=== PATIENT | male | born 1970 | race Caucasian/White ===

== ENCOUNTER 2018-04-30 17:32 | Emergency (ER) | payer MEDICAID, SELFPAY ==
[2018-04-30 17:49] VITALS: BP 129/79; PULSE 73; TEMP 36.7; O2SAT 95
[2018-04-30 18:03] VITALS: RESP 16
--- NOTE | 2018-04-30 18:08 | W.ED.GENAD ---
Discharge Plan Disposition Patient Disposition: HOME Condition: Stable Discharge Details Chief Complaint: GenMedical Clinical Impression: Influenza Primary Care Provider: Jeane,Local ED Provider: Goran Lr Home Meds and New Rx's Prescriptions: New benzonatate 200 mg capsule 200 mg PO TID PRN (Reason: cough) Qty: 30 RF: 0 Discharge Instructions Instructions: Influenza (ED) Additional Instructions: During illness stay well-hydrated, get plenty of rest, and continue to use [id number] cough and cold medication such as Tylenol cold and flu severe or other symptomatic treatment. Return immediately to the emergency department for any significant worsening of symptoms, return of fever after illness for 7 days, or further concerns he may have. Otherwise if not improving after 1 week follow-up with your primary care provider for reassessment. Referrals: Primary Care Provider [Outside] (As needed for reassessment) Discharge Data Discharge Date/Time-TO BE ENTERED AT DEPARTURE: 04/30/18 18:25 Medical Decision Making Flulike symptoms for 3 days, improving today with no fever but continued body aches, physical exam consistent with influenza type illness without signs of secondary bacterial infection including pneumonia, strep pharyngitis, otitis media. No signs of meningitis. Flu testing was offered but given greater than 48 hours did inform him that he past treatment window for Tamiflu. After discussion patient denied testing. Patient prescribed Tessalon Perles and report return precautions were discussed. After discussion of diagnosis and plan of care patient is no further needs, questions, or concerns and states clear understanding to return to the emergency department for any worsening symptoms. HPI General Mode of arrival: ambulatory. Date/Time Provider Initiated Documentation: 04/30/18 18:08. Limitations to Documentation: no limitations. Information obtained by: patient and RN notes reviewed. History of Present Illness 48 year old M presents to the emergency department with the chief complaint of flu like symptoms, described as moderate, with intensity rated at 5. Quality is described as aching (Generalized body), Patient started experiencing this day(s) (3) and it has been constant. Patient did receive the following treatments prior to arrival, NSAID Related Data Home Medications Medication Instructions Recorded Confirmed benzonatate 200 mg PO TID PRN #30 cap 04/30/18 Previous Rx's Medication Instructions Recorded benzonatate 200 mg PO TID PRN #30 cap 04/30/18 Allergies Allergy/AdvReac Type Severity Reaction Status Date / Time No Known Allergies Allergy Unverified 04/30/18 18:10 General Stated Complaint: GenMedical IBETH: 4 Review of Systems Constitutional Reports body ache(s), Reports chills, Reports fever(s), Reports headache(s) and Reports malaise Eyes Denies eye discharge ENT Reports as per HPI, Denies ear discharge, Denies otalgia, Reports headache(s), Reports nasal congestion, Reports nasal discharge, Denies neck pain, Denies sinus pain, Reports sinus pressure, Reports sore throat and Denies throat swelling Cardiovascular Denies chest pain and Denies dyspnea Respiratory Reports cough and Denies dyspnea Gastrointestinal Denies abdominal pain, Denies diarrhea, Denies nausea and Denies vomiting Musculoskeletal Denies joint swelling and Denies neck pain Integumentary/Breasts Denies rash Neurologic Reports headache(s) Allergic/Immunologic Denies throat swelling [facility] Social History Smoking and Tabacco status: Never Exam Const General: cooperative, comfortable and no acute distress Orientation: alert and awake HENMT Head: normal to inspection, normocephalic and atraumatic Ears: hearing grossly normal bilaterally and TM's normal bilaterally General nose exam: external nose normal Face and sinus: normal facial exam, sinuses nontender and no erythema Mouth: oral mucosae normal, no drooling, no muffled voice and no trismus Throat: posterior oropharynx normal, tonsils normal and uvula midline Neck Neck: normal visual inspection, full ROM, no lymphadenopathy, no meningeal signs, trachea midline and supple Resp Effort & Inspection: normal respiratory effort, able to speak in complete sentences and cough Quality of cough: dry Auscultation: clear to auscultation bilaterally Cardio Rate: regular rate Rhythm: regular rhythm Heart Sounds: S1 normal, S2 normal, normal S1 and S2, no click, no gallops, no murmurs and no rubs Skin General skin exam: no rashes or lesions noted and dry skin (warm) Neuro General: alert, awake, oriented x3, gait normal and moves all extremities Cognition: normal cognition Speech: speech normal Course Vital Signs Temperature 36.7 C 04/30/18 17:49 Pulse 73 04/30/18 17:49 Blood Pressure 129/79 04/30/18 17:49 Pulse Oximetry 95 04/30/18 17:49 Temperature 36.7 C 04/30/18 17:49 Temperature Source Temporal Artery Scan 04/30/18 17:49 Pulse 73 04/30/18 17:49 Respiratory Rate 16 04/30/18 18:03 Respiratory Effort Non-Labored 04/30/18 18:03 Respiratory Depth Normal 04/30/18 18:03 Respiratory Pattern Normal 04/30/18 18:03 Blood Pressure 129/79 04/30/18 17:49 Blood Pressure Position Sitting 04/30/18 17:49 Pulse Oximetry 95 04/30/18 17:49 Oxygen Delivery Method Room Air 04/30/18 17:49 Oxygen Flow Rate 0 04/30/18 17:49 Pain Level 5 04/30/18 18:04 Lab/Test Results Lab/Test Results: 04/30/18 17:50 Nasopharynx Influenza Types A,B Antigen - Pending
--- NOTE | 2018-04-30 18:13 | ED.GENADUL_ITS ---
Discharge Plan Disposition Patient Disposition: HOME Condition: Stable Discharge Details Chief Complaint: GenMedical Clinical Impression: Influenza Primary Care Provider: Jeane,Local ED Provider: Goran Lr Home Meds and New Rx's Prescriptions: New benzonatate 200 mg capsule 200 mg PO TID PRN (Reason: cough) Qty: 30 RF: 0 Discharge Instructions Instructions: Influenza (ED) Additional Instructions: During illness stay well-hydrated, get plenty of rest, and continue to use [id number] cough and cold medication such as Tylenol cold and flu severe or other symptomatic treatment. Return immediately to the emergency department for any significant worsening of symptoms, return of fever after illness for 7 days, or further concerns he may have. Otherwise if not improving after 1 week follow-up with your primary care provider for reassessment. Referrals: Primary Care Provider [Outside] (As needed for reassessment) Discharge Data Discharge Date/Time-TO BE ENTERED AT DEPARTURE: 04/30/18 18:25 Medical Decision Making Flulike symptoms for 3 days, improving today with no fever but continued body aches, physical exam consistent with influenza type illness without signs of secondary bacterial infection including pneumonia, strep pharyngitis, otitis media. No signs of meningitis. Flu testing was offered but given greater than 48 hours did inform him that he past treatment window for Tamiflu. After discussion patient denied testing. Patient prescribed Tessalon Perles and r eport return precautions were discussed. After discussion of diagnosis and plan of care patient is no further needs, questions, or concerns and states clear understanding to return to the emergency department for any worsening symptoms. HPI General Mode of arrival: ambulatory . Date/Time Provider Initiated Documentation: 04/30/18 18:08 . Limitations to Documentation: no limitations . Information obtained by: patient and RN notes reviewed . History of Present Illness 48 year old M presents to the emergency department with the chief complaint of flu like symptoms, described as moderate, with intensity rated at 5. Quality is described as aching (Generalized body), Patient started experiencing this day(s) (3) and it has been constant. Patient did receive the following treatments prior to arrival, NSAID Related Data Home Medications Medication Instructions Recorded Confirmed benzonatate 200 mg PO TID PRN #30 cap 04/30/18 Previous Rx's Medication Instructions Recorded benzonatate 200 mg PO TID PRN #30 cap 04/30/18 Allergies Allergy/AdvReac Type Severity Reaction Status Date / Time No Known Allergies Allergy Unverified 04/30/18 18:10 General Stated Complaint: GenMedical IBETH: 4 Review of Systems Constitutional Reports body ache(s), Reports chills, Reports fever(s), Reports headache(s) and Reports malaise Eyes Denies eye discharge ENT Reports as per HPI, Denies ear discharge, Denies otalgia, Reports headache(s), Reports nasal congestion, Reports nasal discharge, Denies neck pain, Denies sinus pain, Reports sinus pressure, Reports sore throat and Denies throat swelling Cardiovascular Denies chest pain and Denies dyspnea Respiratory Reports cough and Denies dyspnea Gastrointestinal Denies abdominal pain, Denies diarrhea, Denies nausea and Denies vomiting Musculoskeletal Denies joint swelling and Denies neck pain Integumentary/Breasts Denies rash Neurologic Reports headache(s) Allergic/Immunologic Denies throat swelling [facility] Social History Smoking and Tabacco status: Never Exam Const General: cooperative, comfortable and no acute distress Orientation: alert and awake HENMT Head: normal to inspection, normocephalic and atraumatic Ears: hearing grossly normal bilaterally and TM's normal bilaterally General nose exam: external nose normal Face and sinus: normal facial exam, sinuses nontender and no erythema Mouth: oral mucosae normal, no drooling, no muffled voice and no trismus Throat: posterior oropharynx normal, tonsils normal and uvula midline Neck Neck: normal visual inspection, full ROM, no lymphadenopathy, no meningeal signs, trachea midline and supple Resp Effort & Inspection: normal respiratory effort, able to speak in complete sentences and cough Quality of cough: dry Auscultation: clear to auscultation bilaterally Cardio Rate: regular rate Rhythm: regular rhythm Heart Sounds: S1 normal, S2 normal, normal S1 and S2, no click, no gallops, no m urmurs and no rubs Skin General skin exam: no rashes or lesions noted and dry skin (warm) Neuro General: alert, awake, oriented x3, gait normal and moves all extremities Cognition: normal cognition Speech: speech normal Course Vital Signs Temperature 36.7 C 04/30/18 17:49 Pulse 73 04/30/18 17:49 Blood Pressure 129/79 04/30/18 17:49 Pulse Oximetry 95 04/30/18 17:49 Temperature 36.7 C 04/30/18 17:49 Temperature Source Temporal Artery Scan 04/30/18 17:49 Pulse 73 04/30/18 17:49 Respiratory Rate 16 04/30/18 18:03 Respiratory Effort Non-Labored 04/30/18 18:03 Respiratory Depth Normal 04/30/18 18:03 Respiratory Pattern Normal 04/30/18 18:03 Blood Pressure 129/79 04/30/18 17:49 Blood Pressure Position Sitting 04/30/18 17:49 Pulse Oximetry 95 04/30/18 17:49 Oxygen Delivery Method Room Air 04/30/18 17:49 Oxygen Flow Rate 0 04/30/18 17:49 Pain Level 5 04/30/18 18:04 Lab/Test Results Lab/Test Results: 04/30/18 17:50 Nasopharynx Influenza Types A,B Antigen - Pending
== END 2018-04-30 18:25 | disposition home or self-care (01) ==
PROVIDERS: Emergency Provider Nurse Practitioner Family
DX: J10.1 Influenza due to other identified influenza virus with other respiratory manifestations (principal)
CPT/HCPCS: 87449; 99283